=== PATIENT | female | born 1960 | race Caucasian/White ===

== ENCOUNTER 2016-11-21 20:53 | Emergency (ER) | payer OTHER, BC ==
[2016-11-21 21:17] VITALS: BP 155/103
[2016-11-21] MEDS ORDERED: Acetaminophen/HYDROcodone 325-5 MG Tab PO ONE (22:20)
--- NOTE | 2016-11-21 22:51 | EDM.PDOC ---
ED HPI GENERAL MEDICAL PROBLEM - General Chief Complaint: General Stated Complaint: FELL AT WORK Time Seen by Provider: 11/21/16 22:19 Source of Information: Reports: Patient History Limitations: Reports: No limitations - History of Present Illness INITIAL COMMENTS - FREE TEXT/NARRATIVE: This patient fell at work and landed on her right over. She complains of pain in the right shoulder and over the clavicle extending up into her neck. She describes it as pretty moderate pain and can't sleep because of it. The greatest pain is over the a.c. joint. She's not complaining of pain when she moves her neck. 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 ED EXAM, GENERAL - Physical Exam Exam: See Below Exam Limited By: No limitations General Appearance: alert, WD/WN, mild distress Eye Exam: bilateral eye: normal inspection Head: atraumatic Neck: supple Respiratory/Chest: lungs clear Cardiovascular: regular rate, rhythm, no murmur Extremities: other (Right shoulder exam shows good passive range of motion of the glenohumeral joint. There is moderate to severe tenderness over the a.c. joint. The rest of the clavicle is generally non-tender. There's some mild tenderness to the sternoclavicular area. The neck is nontender.) Neurological: no motor/sensory deficits Skin Exam: Intact Course - Vital Signs Last Recorded V/S: Last Vital Signs Temp 36.9 C 11/21/16 21:16 Pulse 67 11/21/16 21:16 Resp 16 11/21/16 21:16 BP 155/103 H 11/21/16 21:16 Pulse Ox 96 11/21/16 21:16 - Orders/Labs/Meds Orders: Active Orders 24 hr Category Date Time Status Clavicle Rt [CR] Stat Exams 11/21/16 22:20 Taken Meds: Medications Discontinued Medications Generic Name Dose Route Start Last Admin Trade Name Freq PRN Reason Stop Dose Admin Acetaminophen/Hydrocodone Bitart 2 tab 11/21/16 22:20 11/21/16 22:27 [place] 325-5 Mg PO 11/21/16 22:21 2 tab ONETIME ONE Administration - Radiology Interpretation Free Text/Narrative:: X-rays right clavicle shows no evidence of fracture in the a.c. joint appears to be intact - Re-Assessments/Exams Free Text/Narrative Re-Assessment/Exam: 11/22/16 06:51 The right arm was placed in a sling 11/22/16 06:52 none May have one the lady that is really not anything to do Departure - Departure Time of Disposition: 22:49 Disposition: Home, Self-Care 01 Condition: fair Clinical Impression: Right shoulder strain Instructions: Muscle Strain Referrals: Evert Cleveland DO [Primary Care Provider] - Forms: ED Department Discharge Additional Instructions: There appears to be some strain of the acromioclavicular joint. That's the joint that Your collarbone to the rest of your shoulder. It doesn't appear to be completely torn but just a strain. This should heal fairly quickly within a week or 2. Wear the sling for comfort. Apply ice. If needed use the [place] 05/ 325 (#20) one or 2 tablets every 4 hours as needed. This medication can cause sedation so use with caution - My Orders Last 24 Hours: My Active Orders 11/21/16 22:20 Clavicle Rt [CR] Stat - Assessment/Plan Last 24 Hours: My Active Orders 11/21/16 22:20 Clavicle Rt [CR] Stat
--- NOTE | 2016-11-22 10:06 | CR ---
Clavicle Rt HISTORY: Trauma. COMPARISON: None FINDINGS: Moderate arthrosis AC joint. No acute fracture or destructive process of the right clavicl e.
== END 2016-11-21 23:08 | disposition home or self-care (01) ==
LOC: JP.ED 20:53
DX: S46.911A Strain of unspecified muscle, fascia and tendon at shoulder and upper arm level, right arm, initial encounter (principal); I48.91 Unspecified atrial fibrillation; Z90.710 Acquired absence of both cervix and uterus; Z96.659 Presence of unspecified artificial knee joint; Z86.718 Personal history of other venous thrombosis and embolism; Z79.01 Long term (current) use of anticoagulants; Z88.8 Allergy status to other drugs, medicaments and biological substances; W19.XXXA Unspecified fall, initial encounter
CPT/HCPCS: 73000; 99284; A9270; 99283

== ENCOUNTER 2018-02-04 18:56 | Emergency (ER) | payer BC, OTHER ==
[2018-02-04 19:20] VITALS: BP 142/93
--- NOTE | 2018-02-04 20:11 | EDM.PDOC ---
ED HPI GENERAL MEDICAL PROBLEM - General Chief Complaint: Lower Extremity Injury/Pain Stated Complaint: HURT RT ANKLE Time Seen by Provider: 02/04/18 19:45 Source of Information: Reports: Patient History Limitations: Reports: No Limitations - History of Present Illness INITIAL COMMENTS - FREE TEXT/NARRATIVE: 57-year-old female with a right ankle injury. Her foot slipped through the boards on a dock, and she twisted her ankle while pulling her foot out. She has a hematoma, swelling and tenderness over the medial malleolus with point tenderness over the distal lateral tibia. No other injury. 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 Musculoskeletal History: Reports: Arthritis Endocrine/Metabolic History: Reports: Obesity/BMI 30+ Other Endocrine/Metabolic History: Protien C deficiency Hematologic History: Reports: Anticoagulation Therapy - Past Surgical History GI Surgical History: Reports: Colonoscopy Female Surgical History: Reports: Hysterectomy Musculoskeletal Surgical History: Reports: Knee Replacement Social & Family History - Tobacco Use Smoking Status *Q: Never Smoker - Caffeine Use Caffeine Use: Reports: Soda - Recreational Drug Use Recreational Drug Use: No Review of Systems - Review of Systems Review Of Systems: See Below Constitutional: Denies: Fever Respiratory: Denies: Shortness of Breath Cardiovascular: Denies: Chest Pain GI/Abdominal: Denies: Abdominal Pain ED EXAM, GENERAL - Physical Exam Exam: See Below Exam Limited By: No Limitations General Appearance: Alert, No Apparent Distress Respiratory/Chest: No Respiratory Distress Extremities: Other (Exam is otherwise limited to the lower extremities. The right ankle has a hematoma formed just beneath the medial malleolus with tenderness to palpation of the distal tibia. The forefoot is nontender, the knee is nontender.) Course - Vital Signs Last Recorded V/S: Last Vital Signs Temp 99.4 F 02/04/18 19:38 Pulse 56 L 02/04/18 19:38 Resp 20 02/04/18 19:38 BP 142/93 H 02/04/18 19:38 Pulse Ox 97 02/04/18 19:38 - Orders/Labs/Meds Orders: Active Orders 24 hr Category Date Time Status Ankle 2V Rt [CR] Stat Exams 02/04/18 19:49 Taken - Re-Assessments/Exams Free Text/Narrative Re-Assessment/Exam: 02/04/18 20:11 X-rays negative for fracture. A three-inch Theodore wrap was applied to the foot, she is going to take Tylenol, elevate and ice and increase activity as tolerated. Departure - Departure Time of Disposition: 20:18 Disposition: Home, Self-Care 01 Condition: Good Clinical Impression: Right ankle sprain Qualifiers: Encounter type: initial encounter Involved ligament of ankle: deltoid ligament Qualified Code(s): S93.421A - Sprain of deltoid ligament of right ankle, initial encounter - Discharge Information Instructions: Ankle Sprain, [id number] Referrals: PCP,None [Primary Care Provider] - Forms: ED Department Discharge Care Plan Goals: Wrap ankle for support, elevate and ice may help. Increase activity as tolerated and recheck next week if not improving satisfactorily. - My Orders Last 24 Hours: My Active Orders 02/04/18 19:49 Ankle 2V Rt [CR] Stat - Assessment/Plan Last 24 Hours: My Active Orders 02/04/18 19:49 Ankle 2V Rt [CR] Stat
--- NOTE | 2018-02-05 09:14 | CR ---
Right ankle There is medial soft tissue swelling. The ankle mortise appears intact. There is no evidence of fract ure. There is a prominent calcaneal spur. Impression: 1. Medial soft tissue swelling. 2. No acute findings.
== END 2018-02-04 20:18 | disposition home or self-care (01) ==
LOC: JP.ED 18:56
DX: S93.421A Sprain of deltoid ligament of right ankle, initial encounter (principal); I50.9 Heart failure, unspecified; I48.91 Unspecified atrial fibrillation; Z79.01 Long term (current) use of anticoagulants; Z88.8 Allergy status to other drugs, medicaments and biological substances; X50.1XXA Overexertion from prolonged static or awkward postures, initial encounter
CPT/HCPCS: 73600-26-RT; 73600-RT; 99284

== ENCOUNTER 2019-03-14 23:01 | Emergency (ER) | payer OTHER ==
[2019-03-14 23:17] VITALS: BP 160/99
[2019-03-14] MEDS ORDERED: Tetracaine HCl/PF 0.5% 4 ML Bottle EYELF ONE (23:29)
--- NOTE | 2019-03-14 23:41 | EDM.PDOC ---
ED HPI GENERAL MEDICAL PROBLEM - General Chief Complaint: Eye Problems Stated Complaint: SCRATCHED EYE Time Seen by Provider: 03/14/19 23:40 Source of Information: Reports: Patient History Limitations: Reports: No Limitations - History of Present Illness INITIAL COMMENTS - FREE TEXT/NARRATIVE: pt arrived with pain in her left eye. At about 7 pm she poked a stick in her eye and it has continued to get more and more irritated. 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 Musculoskeletal History: Reports: Arthritis Endocrine/Metabolic History: Reports: Obesity/BMI 30+ Other Endocrine/Metabolic History: Protien C deficiency Hematologic History: Reports: Anticoagulation Therapy - Past Surgical History GI Surgical History: Reports: Colonoscopy Female Surgical History: Reports: Hysterectomy Musculoskeletal Surgical History: Reports: Knee Replacement Social & Family History - Tobacco Use Smoking Status *Q: Never Smoker - Caffeine Use Caffeine Use: Reports: Soda Caffeine Use Comment: diet soda - Recreational Drug Use Recreational Drug Use: No ED ROS GENERAL - Review of Systems Review Of Systems: See Below Constitutional: Reports: No Symptoms HEENT: Reports: Eye Pain Respiratory: Reports: No Symptoms Cardiovascular: Reports: No Symptoms Endocrine: Reports: No Symptoms GI/Abdominal: Reports: No Symptoms : Reports: No Symptoms Musculoskeletal: Reports: No Symptoms Skin: Reports: No Symptoms ED EXAM GENERAL W FULL EYE - Physical Exam Exam: See Below Text/Narrative:: pt arrived with a painful left eye after she poked a stick in the eye. She thought she might have a foreign biody in the eye. Her vision is good, Exam Limited By: No Limitations General Appearance: Alert, Anxious, Other ( tetracaine drops were inserted in the eye and it was examined. No foreign body was seen. The eye was stained and there was a small corneal abrasion at the upper portion of the cornea. This did not appear to be real deep. ) Ears: Normal TMs Nose: Normal Inspection Throat/Mouth: Normal Inspection Head: Atraumatic Course - Vital Signs Last Recorded V/S: Last Vital Signs Temp 35.5 C 03/14/19 23:14 Pulse 65 03/14/19 23:14 Resp 16 03/14/19 23:14 BP 160/99 H 03/14/19 23:14 Pulse Ox 100 03/14/19 23:14 - Orders/Labs/Meds Meds: Medications Discontinued Medications Generic Name Dose Route Start Last Admin Trade Name Freq PRN Reason Stop Dose Admin Gentamicin Sulfate 1 ml 03/15/19 09:00 Garamycin 0.3% Ophth Soln EYERT TID ISATU Gentamicin Sulfate 11 ml 03/15/19 23:48 Garamycin 0.3% Ophth Soln EYERT 03/15/19 23:49 TID ONE Gentamicin Sulfate 1 ml 03/14/19 23:54 03/14/19 23:59 Garamycin 0.3% Ophth Soln EYERT 03/14/19 23:55 1 drop TID ONE Administration Tetracaine HCl 1 ml 03/14/19 23:29 03/14/19 23:32 Tetracaine 0.5% Steri-Unit Miriam EYELF 03/14/19 23:30 1 drop ASDIRECTED ONE Administration Departure - Departure Time of Disposition: 23:41 Disposition: Home, Self-Care 01 Condition: Fair Clinical Impression: Corneal abrasion - Discharge Information Instructions: Corneal Abrasion Referrals: PCP,None [Primary Care Provider] - Forms: ED Department Discharge Care Plan Goals: patch rt eye for the nite. Take off in the am and start gentamycin eye drops tid for the next 4 days. Use motrin 600 q6h prn for pain, usedark glasses to avoid lite exposure.
[2019-03-14] MEDS ORDERED: Gentamicin 0.3% Ophth Soln 5 ML Bottle EYERT ONE (23:54)
[2019-03-15] MEDS ORDERED: Gentamicin 0.3% Ophth Soln 5 ML Bottle EYERT SCH (09:00)
[2019-03-15] MEDS ORDERED: Gentamicin 0.3% Ophth Soln 5 ML Bottle EYERT ONE (23:48)
== END 2019-03-15 00:07 | disposition home or self-care (01) ==
LOC: JP.ED 23:01
DX: S05.02XA Injury of conjunctiva and corneal abrasion without foreign body, left eye, initial encounter (principal); M19.90 Unspecified osteoarthritis, unspecified site; E66.9 Obesity, unspecified; I48.91 Unspecified atrial fibrillation; I50.9 Heart failure, unspecified; Z88.8 Allergy status to other drugs, medicaments and biological substances; Z79.01 Long term (current) use of anticoagulants; Z86.718 Personal history of other venous thrombosis and embolism; Z90.710 Acquired absence of both cervix and uterus; X58.XXXA Exposure to other specified factors, initial encounter
CPT/HCPCS: 99283; A9270

== ENCOUNTER 2019-10-20 12:18 | Emergency (ER) | payer OTHER ==
[2019-10-20 12:25] VITALS: BP 140/70; PULSE 71
--- NOTE | 2019-10-20 12:51 | EDM.PDOC ---
ED HPI GENERAL MEDICAL PROBLEM - General Chief Complaint: Back Pain or Injury Stated Complaint: FALL VIA NORTH Time Seen by Provider: 10/20/19 12:25 Source of Information: Reports: Patient, EMS History Limitations: Reports: No Limitations - History of Present Illness INITIAL COMMENTS - FREE TEXT/NARRATIVE: 59-year-old female brought in by ambulance after falling and injuring the right posterior chest and flank area. She was standing on the base of a fireplace when she stumbled back and hit the right upper flank and posterior chest on a windowsill. She called EMS because she was unable to breathe. She is now able to take a breath but is still having significant spasm and pain. A few superficial scrapes on the anterior right lower leg, otherwise no other injury. Denies any head injury or neck pain. No loss of consciousness, denies abdominal pain. She is on Coumadin due to a history of atrial fibrillation. Onset: Sudden Duration: Hour(s): (Within the last 30 minutes) Location: Reports: Back Quality: Reports: Sharp, Stabbing Worsens with: Reports: Other (Worsens with lying down or moving, also breathing) Associated Symptoms: Reports: Other (Sharp pleuritic pain with breathing). 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 Musculoskeletal History: Reports: Arthritis Endocrine/Metabolic History: Reports: Obesity/BMI 30+ Other Endocrine/Metabolic History: Protien C deficiency Hematologic History: Reports: Anticoagulation Therapy - Past Surgical History Head Surgeries/Procedures: Reports: None HEENT Surgical History: Reports: None Cardiovascular Surgical History: Reports: None GI Surgical History: Reports: Colonoscopy Female Surgical History: Reports: Hysterectomy Endocrine Surgical History: Reports: None Musculoskeletal Surgical History: Reports: Knee Replacement Dermatological Surgical History: Reports: None Social & Family History - Tobacco Use Smoking Status *Q: Never Smoker Second Hand Smoke Exposure: No - Caffeine Use Caffeine Use: Reports: Tea Caffeine Use Comment: diet soda - Recreational Drug Use Recreational Drug Use: No ED ROS GENERAL - Review of Systems Review Of Systems: See Below Constitutional: Denies: Fever, Chills Respiratory: Reports: Pleuritic Chest Pain Cardiovascular: Reports: Chest Pain (Right posterior chest) GI/Abdominal: Denies: Abdominal Pain, Nausea, Vomiting Skin: Reports: Bruising (Developing bruising and an abrasion over the right flank, also some superficial abrasions on the leg) Neurological: Reports: No Symptoms ED EXAM, GENERAL - Physical Exam Exam: See Below Exam Limited By: No Limitations General Appearance: Alert, Mild Distress (Fairly uncomfortable) Eye Exam: Bilateral Eye: Normal Inspection Head: Atraumatic Neck: Supple, Non-Tender Respiratory/Chest: No Respiratory Distress, Other (Patient has a few rales and crackles in the right lung base under the bruised and painful area) Cardiovascular: Regular Rate, Rhythm GI/Abdominal: Soft, Non-Tender Back Exam: Other (Patient has a linear abrasion over the lateral right upper back and lower chest with exquisite tenderness to palpation under the bruised area) Extremities: Other (A few superficial abrasions on the right anterior paz, otherwise no evidence of trauma) Neurological: Alert, Oriented Psychiatric: Anxious Course - Vital Signs Last Recorded V/S: Last Vital Signs Temp 97.4 F 10/20/19 12:28 Pulse 71 10/20/19 12:28 Resp 16 10/20/19 12:28 BP 140/70 10/20/19 12:28 Pulse Ox 99 10/20/19 12:28 - Re-Assessments/Exams Free Text/Narrative Re-Assessment/Exam: 10/20/19 12:49 A fast ultrasound of the abdomen showed no free fluid, ultrasound of the lung showed good pleural contact with the chest wall and no pneumothorax. A CT of the chest will be obtained without contrast 10/20/19 13:47 IMPRESSION: No sign of traumatic injury to the chest. Mild dependent atelectasis in the posterior lung bases. Small nonspecific noncalcified pleural and subpleural nodules as described in both lungs, 1 on the left and 1 on the right. These can be followed using Fleischner society criteria. Cholelithiasis with no sign of acute cholecystitis. Above findings were discussed with the patient, she still had significant discomfort in the area of trauma. She will be discharged with 10 hydrocodone for extra pain control, encouraged to ice the area and increase activity as tolerated. Departure - Departure Time of Disposition: 13:59 Disposition: Home, Self-Care 01 Clinical Impression: Contusion of back wall of thorax Qualifiers: Encounter type: initial encounter Laterality: right Qualified Code(s): S20.221A - Contusion of right back wall of thorax, initial encounter - Discharge Information Instructions: Contusion, [id number] Referrals: PCP,None [Primary Care Provider] - Forms: ED Department Discharge Care Plan Goals: Ice or cool compresses to the sore area would be helpful for the next 2 days, and increase activity as tolerated. Use stronger pain medications as needed for extra pain control. Return anytime if difficulty breathing or other concerns, otherwise consider rechecking next week if not improving satisfactorily. Sepsis Event Note - Evaluation Sepsis Screening Result: No Definite Risk - Focused Exam Vital Signs: Vital Signs Temp Pulse Resp BP Pulse Ox 10/20/19 12:28 97.4 F 71 16 140/70 99 10/20/19 12:23 97.4 F 71 16 140/70 99 Date Exam was Performed: 10/20/19 Time Exam was Performed: 17:27
--- NOTE | 2019-10-20 13:42 | CRLCT ---
INDICATION: Pain after posterior chest trauma on the right. COMPARISON: None available TECHNIQUE: CT examination of the chest was performed without contrast enhancement. 3 mm thick axial sections were obtained from above the apices of the lungs to the lung bases. Please note that all CT scans at this facility use dose modulation, iterative reconstruction, and/or weight-based dosing when appropriate to reduce radiation dose to as low as reasonably achievable. FINDINGS: There is mild patchy density in the posterior portions of both lower lobes, consistent with atelectasis. There is no sign of pneumothorax, pulmonary contusion, pleural hematoma, or pleural effusion. There is a noncalcified pleural nodule in the posterior left superior segments of the lower lobe measuring 5 millimeters in diameter on axial image 46 series 3. There is a 6 millimeter noncalcified subpleural nodule in the lateral aspect of the lateral basilar segment of the right lower lobe on axial image 51 series 3. These nodules can be followed using Fleischner society criteria. A tiny calcified granuloma is seen in the subpleural anterior-lateral right middle lobe on axial image 34 series 3. Another calcified granuloma is seen in the anterior-medial right middle lobe on axial image 69 series 3. There is no sign of mediastinal or hilar mass or adenopathy. Sensitivity is limited by lack of contrast enhancement. The heart is normal in appearance for the patient`s age, as are the aorta and other ascending great vessels. There is no sign of supraclavicular or axillary mass or adenopathy. The visualized superior liver has multiple small simple cysts. One is located in the superior portion of the medial segment of the left lobe, segment 4A, measuring 1.4 centimeters in diameter. Another is located in the dome of the posterior segment of the right lobe, segment 7, measuring 2.0 centimeters. There is no sign of solid mass in the rest of the visualized liver. The visualized superior spleen, pancreas, left kidney, and adrenals are normal in appearance. Multiple peripherally calcified gallstones are seen in the dependent portion of the gallbladder, largely filling the gallbladder. The gallbladder is otherwise normal in appearance. Nothing is seen to suggest acute cholecystitis. There is a mild S-shaped scoliosis of the thoracic and lumbar spines, with the thoracic curve convex towards the right. The ribs show no sign of fracture. There is no sign of fracture of the thoracic spine, sternum, or manubrium. The visualized shoulder girdle is intact. IMPRESSION: No sign of traumatic injury to the chest. Mild dependent atelectasis in the posterior lung bases. Small nonspecific noncalcified pleural and subpleural nodules as described in both lungs, 1 on the left and 1 on the right. These can be followed using Fleischner society criteria. Cholelithiasis with no sign of acute cholecystitis. Please note that all CT scans at this facility use dose modulation, iterative reconstruction, and/or weight-based dosing when appropriate to reduce radiation dose to as low as reasonably achievable. Dictated by Peter Nichole MD @ Oct 20 2019 1:32PM Signed by Dr. Peter Nichole @ Oct 20 2019 1:41PM
== END 2019-10-20 14:14 | disposition home or self-care (01) ==
LOC: JP.ED 12:18
DX: S20.221A Contusion of right back wall of thorax, initial encounter (principal); I48.91 Unspecified atrial fibrillation; E66.9 Obesity, unspecified; I50.9 Heart failure, unspecified; Z88.8 Allergy status to other drugs, medicaments and biological substances; Z79.01 Long term (current) use of anticoagulants; Z68.33 Body mass index [BMI] 33.0-33.9, adult; W10.9XXA Fall (on) (from) unspecified stairs and steps, initial encounter; Y93.89 Activity, other specified; Y92.89 Other specified places as the place of occurrence of the external cause
CPT/HCPCS: 71250; 99284-25